=== PATIENT | male | born 1960 | race Caucasian/White ===

== ENCOUNTER 2019-02-05 05:56 | Day surgery (SDC) | payer BC ==
[2019-02-05] MEDS ORDERED: Dextrose 5%-Lactated Ringers 1,000 ML IV SCH (06:15)
[2019-02-05] MEDS ORDERED: cefOXitin 2 GM Vial ONE (06:35)
[2019-02-05] MEDS ORDERED: Propofol 200 MG/20 ML SDV ONE (06:59)
[2019-02-05] MEDS ORDERED: Midazolam 1 MG/ML 2 ML SDV ONE (06:59)
[2019-02-05] MEDS ORDERED: fentaNYL 100 MCG/2 ML SDV ONE (06:59)
--- NOTE | 2019-02-12 10:54 | OR ---
DATE OF PROCEDURE: 02/05/2019 SURGEON: Oliver Stapleton MD PREOPERATIVE DIAGNOSIS: Indication for screening colonoscopy. POSTOPERATIVE DIAGNOSIS: Single polyp at splenic flexure. PROCEDURE: Flexible colonoscopy with polypectomy by snare technique ([id number]). ANESTHESIA: IV sedation. INDICATIONS FOR PROCEDURE: This is a 58-year-old male presenting for a screening colonoscopy. Plan is to proceed with a colonoscopy with biopsies and/or polypectomy as indicated. Potential risks including bleeding and perforation were discussed, and the patient wishes to proceed. DETAILS OF PROCEDURE: The patient was taken to the operating room and placed in a left lateral decubitus position. IV sedation was administered, after which the initial digital rectal exam was performed, which was unremarkable. Colonoscope was then passed into the rectum with retroflexion revealing uncomplicated hemorrhoidal columns. Scope was then eventually passed to the level of the cecum. The prep was fairly good. The only finding that was abnormal was that of a small polyp in the splenic flexure. This was encircled and excised by means of cautery snare, and there was a small specimen retrieved. The polyp was in the range of 2 to 3 mm in size. Good hemostasis was noted at the polypectomy site. The scope was then withdrawn and the remaining examination remained normal and the procedure was then concluded. The followup on this patient in terms of the next colonoscopy will be dependent on the pathology report. If it is an adenomatous polyp of some type, then a repeat colonoscopy in 2 to 3 years should be undertaken versus 10 years if this is a hyperplastic polyp. We will notify the patient regarding that result when it becomes available. Oliver Stapleton MD /[id number]
== END 2019-02-05 08:55 | disposition home or self-care (01) ==
LOC: JP.SDS 05:56
PROVIDERS: ATTEND Surgery
DX: Z12.11 Encounter for screening for malignant neoplasm of colon (principal)
CPT/HCPCS: 45385; 88305; J2250; J2704; J3010; J7042; J0694

== ENCOUNTER 2020-06-15 22:49 | Emergency (ER) | payer BC ==
[2020-06-15] MEDS ORDERED: Ketorolac 60 MG/2 ML SDV IM ONE (23:19)
--- NOTE | 2020-06-15 23:20 | EDM.PDOC ---
ED HPI GENERAL MEDICAL PROBLEM - General Chief Complaint: General Stated Complaint: CHEST PAIN Time Seen by Provider: 06/15/20 23:14 Source of Information: Reports: Patient, Family, RN Notes Reviewed History Limitations: Reports: No Limitations - History of Present Illness INITIAL COMMENTS - FREE TEXT/NARRATIVE: 59-year-old gentleman presents emergency department a complaint of chest pain, he is very specific is located on the anterior chest below his breast on the left side he was doing some ice-skating today states the pain started about 10 hours prior it is worse when he takes a deep breath no nausea no vomiting no shortness of breath no diaphoresis no history of heart disease denies any trauma Left Chest Pain Score (Numeric/FACES): 6 - Related Data Allergies Allergy/AdvReac Type Severity Reaction Status Date / Time No Known Allergies Allergy Verified 06/15/20 22:57 Home Meds: Home Meds timoloL maleate [Timoptic 0.25% Ophth Soln] 1 drop EYEBOTH DAILY 02/01/19 [History] Past Medical History HEENT History: Reports: Allergic Rhinitis, Cataract, Impaired Vision Respiratory History: Reports: Bronchitis, Recurrent Musculoskeletal History: Reports: Fracture - Infectious Disease History Infectious Disease History: Reports: Chicken Pox - Past Surgical History HEENT Surgical History: Reports: Cataract Surgery, Oral Surgery Respiratory Surgical History: Reports: None Musculoskeletal Surgical History: Reports: None Social & Family History - Tobacco Use Tobacco Use Status *Q: Former Tobacco User Years of Tobacco use: 35 Packs/Tins Daily: 0.5 Used Tobacco, but Quit: Yes Month/Year Tobacco Last Used: January 2020 Second Hand Smoke Exposure: No - Caffeine Use Caffeine Use: Reports: Coffee, Soda - Alcohol Use Days Per Week of Alcohol Use: 2 Number of Drinks Per Day: 1 Total Drinks Per Week: 2 - Recreational Drug Use Recreational Drug Use: No ED ROS GENERAL - Review of Systems Review Of Systems: See Below Constitutional: Reports: No Symptoms HEENT: Reports: No Symptoms Respiratory: Reports: No Symptoms Cardiovascular: Reports: Chest Pain GI/Abdominal: Reports: No Symptoms ED EXAM, GENERAL - Physical Exam Exam: See Below Exam Limited By: No Limitations General Appearance: Alert, WD/WN, No Apparent Distress Respiratory/Chest: No Respiratory Distress, Lungs Clear, Normal Breath Sounds, No Accessory Muscle Use, Chest Non-Tender Cardiovascular: Regular Rate, Rhythm, No Murmur, Other (Chest is nontender to palpation) GI/Abdominal: Soft, Non-Tender Extremities: No Pedal Edema Course - Vital Signs Last Recorded V/S: Last Vital Signs Temp 97.7 F 06/15/20 23:12 Pulse 67 06/15/20 23:12 Resp 12 06/15/20 23:12 BP 175/108 H 06/15/20 23:12 Pulse Ox 97 06/15/20 23:12 - Orders/Labs/Meds Orders: Active Orders 24 hr Category Date Time Status Cardiac Monitoring [RC] .As Directed Care 06/15/20 23:18 Active EKG Documentation Completion [RC] ASDIRECTED Care 06/15/20 23:18 Active Chest 2V [CR] Stat Exams 06/15/20 23:18 Taken EKG 12 Lead [EK] Stat Ther 06/15/20 23:18 Ordered Labs: Laboratory Tests 06/15/20 06/15/20 Range/Units 23:29 23:29 WBC 6.5 (4.5-11.0) K/uL RBC 4.68 (4.30-5.90) M/uL Hgb 12.7 (12.0-15.0) g/dL Hct 38.6 L (40.0-54.0) % MCV 83 (80-98) fL MCH 27 (27-31) pg MCHC 33 (32-36) % Plt Count 162 (150-400) K/uL Neut % (Auto) 66 (36-66) % Lymph % (Auto) 20 L (24-44) % [place] % (Auto) 7 H (2-6) % Eos % (Auto) 7 H (2-4) % Baso % (Auto) 0 (0-1) % Sodium 140 (140-148) mmol/L Potassium 4.1 (3.6-5.2) mmol/L Chloride 102 (100-108) mmol/L Carbon Dioxide 29 (21-32) mmol/L Anion Gap 9.1 (5.0-14.0) mmol/L BUN 12 (7-18) mg/dL Creatinine 0.8 (0.8-1.3) mg/dL Est Cr Clr Drug Dosing 92.03 mL/min Estimated GFR (MDRD) > 60 (>60) Glucose 109 H (74-106) mg/dL Calcium 8.7 (8.5-10.1) mg/dL Troponin I < 0.017 (0.000-0.056) ng/mL Meds: Medications Discontinued Medications Generic Name Dose Route Start Last Admin Trade Name Anahi PRN Reason Stop Dose Admin Ketorolac Tromethamine 60 mg 06/15/20 23:19 06/15/20 23:38 Toradol IM 06/15/20 23:20 60 mg ONETIME ONE Administration Departure - Departure Time of Disposition: 00:14 Disposition: Home, Self-Care 01 Condition: Fair Clinical Impression: Chest wall pain - Discharge Information Instructions: Chest Wall Pain, [id number] Referrals: PCP,None [Primary Care Provider] - Forms: ED Department Discharge Additional Instructions: Use Tylenol or Motrin as needed for pain control, please followup with your primary care provider in 3-5 days if not better, please call return to the emergency department with worsening of symptoms. Sepsis Event Note (ED) - Evaluation Sepsis Screening Result: No Definite Risk - Focused Exam Vital Signs: Vital Signs Temp Pulse Resp BP Pulse Ox 06/15/20 23:12 97.7 F 67 12 175/108 H 97 06/15/20 23:04 97.7 F 67 12 175/108 H 97 - My Orders Last 24 Hours: My Active Orders 06/15/20 23:18 Cardiac Monitoring [RC] .As Directed EKG Documentation Completion [RC] ASDIRECTED Chest 2V [CR] Stat EKG 12 Lead [EK] Stat - Assessment/Plan Last 24 Hours: My Active Orders 06/15/20 23:18 Cardiac Monitoring [RC] .As Directed EKG Documentation Completion [RC] ASDIRECTED Chest 2V [CR] Stat EKG 12 Lead [EK] Stat Plan: Assessment Acuity = acute Site and laterality = chest wall pain Etiology = probably related to a twisting injury today Manifestations = none Location of injury = Home Lab values = CBC, BMP, troponin within normal limits EKG demonstrates sinus rhythm there is no ST elevation or depression chest x-ray I did review films myself I cannot appreciate any acute process, the official read from radiology is pending Plan Good relief with the Toradol provided he is can use Tylenol or Motrin as needed for pain control follow-up primary care 3 to 5 days if not better This note was dictated using [employer] voice recognition software please call with any questions on syntax or grammar.
--- NOTE | 2020-06-16 10:19 | CR ---
CHEST: 2 view CLINICAL HISTORY:Chest pain COMPARISON:None FINDINGS: The heart size, pulmonary vascularity and hilar structures are normal. No infiltrate effusion or pneumothorax is seen. There is minimal blunting left costophrenic angle. This is likely chronic IMPRESSION: No acute cardiopulmonary process
== END 2020-06-16 00:28 | disposition home or self-care (01) ==
LOC: JP.ED 22:49
DX: R07.89 Other chest pain (principal); Z87.891 Personal history of nicotine dependence
CPT/HCPCS: 36415; 71046; 71046-26; 80048; 84484; 85025; 93005; 93010; 96372; 99283; 99285-25; J1885

== ENCOUNTER 2021-05-25 07:17 | Day surgery (SDC) | payer BC ==
[~2021-05-25 07:17] MED LIST: Dextrose 5%-Lactated Ringers 1,000 ML IV SCH
[2021-05-25] MEDS ORDERED: Propofol 200 MG/20 ML SDV ONE (07:36)
[2021-05-25] MEDS ORDERED: Midazolam 1 MG/ML 2 ML SDV ONE (07:36)
[2021-05-25] MEDS ORDERED: fentaNYL 100 MCG/2 ML SDV ONE (07:36)
--- NOTE | 2021-05-27 13:35 | OR ---
DATE OF PROCEDURE: 05/25/2021 SURGEON: Oliver Staplteon MD PREOPERATIVE DIAGNOSIS: History of colon adenomatous polyps. POSTOPERATIVE DIAGNOSIS: Normal colonoscopic examination with no recurrent polyps. OPERATIVE PROCEDURE: Flexible colonoscopy. ANESTHESIA: IV sedation. INDICATION FOR PROCEDURE: A 60-year-old male presenting with history of colon polyps for a followup colonoscopy. Potential risks including bleeding and perforation were discussed and the patient wishes to proceed. DETAILS OF PROCEDURE: The patient was taken to the operating room and placed in a left lateral decubitus position. IV sedation was administered after which the initial digital rectal exam was performed and was unremarkable. Colonoscope was then passed into the rectum with retroflexion revealing uncomplicated hemorrhoidal columns. Scope was eventually passed to the level of the cecum. The prep was quite good with only small liquid stools present to that level. There was no diverticular disease. No areas of colitis and no recurrent polyps or other signs of neoplasia were identified. Scope was then withdrawn. The above findings reconfirmed and the procedure then concluded. The recommendation is to repeat colonoscopy in 5 years given personal history of colon polyps. Oliver Stapleton MD Job #: [id number]
== END 2021-05-25 10:15 | disposition home or self-care (01) ==
LOC: JP.SDS 07:17
PROVIDERS: ATTEND Surgery
DX: Z12.11 Encounter for screening for malignant neoplasm of colon (principal); K64.9 Unspecified hemorrhoids; F17.200 Nicotine dependence, unspecified, uncomplicated; Z86.010 Personal history of colon polyps
CPT/HCPCS: 45378; J2250; J2704; J3010; J7121